=== PATIENT | female | born 1970 | race Caucasian/White ===

== ENCOUNTER 2016-09-07 09:31 | Day surgery (SDC) | payer OTHER ==
--- NOTE | 2016-09-02 13:02 | HISTORY AND PHYSICAL E ---
History and Physical NAME: THELMA DEVI : 1970 AGE: 46Y ADMITTED: 09/07/2016 ROOM: ADMIT DATE: 09/07/2016 CHIEF COMPLAINT: Patient presented regarding upper endoscopy. REVIEW OF SYSTEMS: She did have upper scope 2008 showing small hiatus hernia, esophagitis, gastritis, duodenitis. She did have esophageal biopsy showing chronic esophagitis with dysplasia. She was H. pylori negative. Her white count 6.9, hemoglobin 12, hematocrit 36. The patient was seen again in 2012 regarding reflux. Patient did have breast augmentation. She did have laparoscopy surgery for endometriosis. GASTROINTESTINAL: Reflux, question Ofster's. CARDIAC: Negative. RESPIRATORY: Negative. NEUROPSYCHIATRIC: Anxiety. FAMILY HISTORY: Father is alive with diverticulosis. Mom is alive. PHYSICAL EXAMINATION: VITAL SIGNS: Blood pressure 110/70. Pulse 80. Respirations 20. Temperature 98. HEAD, EYES, EARS, NOSE AND THROAT: Normal. ABDOMEN: Soft. NEUROLOGIC EXAM: Negative. Upper scope done in 2012 showing 1 cm sliding hiatus hernia, distal esophagitis, gastritis, duodenitis. CEA was 1.4 and CA 19-9 was 16. CA 125 was 6. PRIMARY CARE PHYSICIAN: . The patient presented with reflux. She sees Dr. Kimbrough, Endocrine, regarding thyroid. Patient was seen 07/2015 regarding weight gain. 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 PLAN: Upper endoscopy regarding reflux. She was sent to us by [facility]. She does have a question of Foster's reflux. DICTATING PHYSICIAN: MARIANO OBANDO M.D. [id number] Y#: [id number] ID: [id number] JOB#: [id number] ACCT: [id number] cc:MARIANO OBANDO M.D. >
[2016-09-07] MEDS ORDERED: ONDANSETRON HCL INJ/PF 4 MG/2 ML SDV ONE (10:01)
[2016-09-07] MEDS ORDERED: PROMETHAZINE HCL INJ 25 MG/1 ML VIAL ONE (10:01)
[2016-09-07] MEDS ORDERED: GLYCOPYRROLATE INJ 0.4 MG/2 ML VIAL ONE (10:01)
[2016-09-07] MEDS ORDERED: NALOXONE HCL INJ/PF 0.4 MG/1 ML SDV ONE (10:01)
[2016-09-07] MEDS ORDERED: FLUMAZENIL INJ 0.5 MG/5 ML VIAL IV ONE (10:02)
[2016-09-07] MEDS ORDERED: MIDAZOLAM 2 MG/2 ML INJ ONE (10:02)
[2016-09-07] MEDS ORDERED: EPINEPHRINE INJ 1 MG/10 ML DISP.SYRIN ONE (10:02)
[2016-09-07] MEDS: FENTANYL CITRATE INJ/PF 100 MCG/2 ML AMPUL ONE ×2 (10:32→10:38)
[2016-09-07] MEDS: MIDAZOLAM 2 MG/2 ML INJ ONE ×3 (10:34→10:40)
[2016-09-07 11:46] VITALS: BP 123/85
--- NOTE | 2016-09-07 14:48 | DISCHARGE SUMMARY E ---
Discharge Summary NAME: THELMA DEVI : 1970 AGE: 46Y ADMITTED: 09/07/2016 DISCHARGED: 09/07/2016 The patient is a 46-year-old female who presented with reflux. Upper scope today showed junction at 35. She did have multiple gastric polyps, benign, 3-4 mm in size. One of the polyps at the gastric portion of the GE junction. She did have mild esophagitis, gastritis, and duodenitis. DISCHARGE PLAN: 1. Hold aspirin. 2. Soft diet. 3. Continue Zantac and Nexium. 4. Awaiting biopsy results. 5. Consider followup upper endoscopy in 1 year. DICTATING PHYSICIAN: MARIANO OABNDO M.D. [id number] [id number] Y#: [id number] ID: [id number] JOB#: [id number] ACCT: [id number] cc:[facility] MARIANO OBANDO M.D. >
--- NOTE | 2016-09-07 14:49 | OPERATIVE REPORT E ---
Operative Report NAME: THELMA DEVI : 1970 AGE: 46Y DATE OF SURGERY: 09/07/2016 ROOM: PREOPERATIVE DIAGNOSIS: A 46-year-old female with reflux. POSTOPERATIVE DIAGNOSES: 1. Mild esophagitis. 2. Mild gastritis. 3. Multiple benign gastric polyps, 2-3 mm in size, one of the polyps at GE junction at the gastric portion of the GE junction. 4. No evidence of bleeding, no evidence of malignancy. SURGEON: MARIANO OBANDO M.D. ANESTHESIA: Versed 5, fentanyl 75. DESCRIPTION OF PROCEDURE: After adequate sedation, the baby scope passed under guided vision. No difficulties. Esophagoscopy: Junction located at 35 cm, mild distal esophagitis. Gastroscopy: No ulcers, mild gastritis. Multiple gastric polyps. Duodenoscopy: No evidence of ulcers. Mild duodenitis. CONCLUSION: Patient has no evidence of ulcers, no evidence of malignancy. Patient did have multiple gastric polyps, benign. Mild esophagitis, gastritis, duodenitis. PLAN: The patient tolerated the procedure well and discharged to her room in stable condition. DICTATING PHYSICIAN: MARIANO OBANDO M.D. [id number] [id number] PHY#: [id number] ID: [id number] JOB#: [id number] ACCT: [id number] cc:MARIANO OBANDO M.D. >
== END 2016-09-07 11:50 | disposition home or self-care (01) ==
LOC: END 09:31
PROVIDERS: ATTEND Specialist
PROC: 0DB68ZX Excision of Stomach, Via Natural or Artificial Opening Endoscopic, Diagnostic (ICD-10-PCS; principal; 2016-09-07 10:00)
DX: K21.0 Gastro-esophageal reflux disease with esophagitis (principal); K31.7 Polyp of stomach and duodenum; K31.9 Disease of stomach and duodenum, unspecified; K29.80 Duodenitis without bleeding; E88.89 Other specified metabolic disorders
CPT/HCPCS: 43239; 88305 ×2; J2250; J3010; J2405; J0171; J2310; J2550; J3490